=== PATIENT | female | born 2000 | race Caucasian/White ===

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

== ENCOUNTER → 2021-02-20 | Outpatient (CLI) | payer SELFPAY ==
[~2021-02-20] MED LIST changes: +ACETAMINOPHEN500 MG PO; +ALBU90OI6 INH; +Amoxicillin500 MG PO; +IBUP400 PO; +METPRE4DP PO; +Zofran Odt4 MG SL
[2021-02-21 08:22] LABS: G. vaginalis (DNA Probe) Positive (NEGATIVE); T. vaginalis (DNA Probe) Negative (NEGATIVE)
[2021-02-21 08:23] LABS: Candida species (DNA Probe) Negative (NEGATIVE)
[2021-02-22 05:09] LABS: CHLAMYDIA TRACHOMATIS, NAA Positive (Negative)
== END | disposition home or self-care (01) ==
LOC: LAB SHORT 17:55 → LAB EV 17:55
PROVIDERS: Physician Assistant
DX: Z20.9 Contact with and (suspected) exposure to unspecified communicable disease (principal)
CPT/HCPCS: 87480; 87491; 87510; 87591; 87660

== ENCOUNTER 2021-12-08 16:14 | Emergency (ER) | payer OTHER ==
[~2021-12-08] VITALS: Ht 165.1 cm; Wt 72.6 kg
[2021-12-08] MEDS ORDERED: PERIDEX15 ML MM (20:19)
[2021-12-08] MEDS ORDERED: AMOCLA875 PO (20:19)
== END 2021-12-08 20:32 | disposition home or self-care (01) ==
LOC: ER 16:14
DX: S01.551A Open bite of lip, initial encounter (principal); Z91.018 Allergy to other foods; Z88.8 Allergy status to other drugs, medicaments and biological substances; F17.210 Nicotine dependence, cigarettes, uncomplicated; W54.0XXA Bitten by dog, initial encounter
CPT/HCPCS: A9270

== ENCOUNTER 2022-05-25 21:28 | Emergency (ER) | payer OTHER ==
[~2022-05-25] VITALS: Ht 167.6 cm; Wt 68.0 kg
[~2022-05-25 21:28] MED LIST changes: +PERIDEX15 ML MM
[2022-05-25] MEDS ORDERED: IBUP800 PO (22:48)
== END 2022-05-25 22:59 | disposition home or self-care (01) ==
LOC: ER 21:28
DX: S00.83XA Contusion of other part of head, initial encounter (principal); F17.210 Nicotine dependence, cigarettes, uncomplicated; Z88.8 Allergy status to other drugs, medicaments and biological substances; Z91.018 Allergy to other foods; W51.XXXA Accidental striking against or bumped into by another person, initial encounter
CPT/HCPCS: J1885

== ENCOUNTER → 2023-02-16 | Outpatient (CLI) | payer OTHER ==
[~2023-02-16] MED LIST changes: +IBUP800 PO
[2023-02-19 14:11] LABS: CHLAMYDIA BY NAA Negative (Negative); GONOCOCCUS BY NAA Negative (Negative); TRICH VAG BY NAA Negative (Negative)
== END | disposition home or self-care (01) ==
LOC: LAB 18:42 → LAB SHORT 18:42
PROVIDERS: Family Medicine
DX: N89.8 Other specified noninflammatory disorders of vagina (principal); R35.0 Frequency of micturition
CPT/HCPCS: 87086; 87491; 87591; 87661

== ENCOUNTER → 2024-05-21 | Outpatient (CLI) | payer OTHER ==
[2024-05-21 17:06] LABS: BASOPHILS ABSOLUTE AUTO 0.07 K/mm3 (0.00-0.23); BASOPHILS PERCENT AUTO 1 % (0-2); EOSINOPHILS ABSOLUTE AUTO 0.14 K/mm3 (0.00-0.68); EOSINOPHILS PERCENT AUTO 2 % (0-6); Hematocrit 41.8 % (33.0-51.0); Hemoglobin 14.8 g/dL (11.5-16.0); IMMATURE GRAN ABSOLUTE AUTO 0.03 K/mm3 (0.00-0.10); IMMATURE GRAN PERCENT AUTO 0 % (0-1); LYMPHOCYTES ABSOLUTE AUTO 1.33 K/mm3 (0.84-5.20); LYMPHOCYTES PERCENT AUTO 19 % (21-46); MONOCYTES ABSOLUTE AUTO 0.67 K/mm3 (0.16-1.47); MONOCYTES PERCENT AUTO 9 % (4-13); Mean Corpuscular HGB 31.7 pg (26.0-34.0); Mean Corpuscular HGB Conc 35.4 g/dL (31.5-36.5); Mean Corpuscular Volume 90 fL (80-100); Mean Platelet Volume 9.2 fL (9.1-12.4); NEUTROPHILS ABSOLUTE AUTO 4.89 K/mm3 (1.96-9.15); NEUTROPHILS PERCENT AUTO 69 % (41-73); Platelet Count 282 K/mm3 (150-400); RDW Coefficient Variation 11.8 % (11.7-14.2); RDW Standard Deviation 37.5 fL (35.1-46.3); Red Blood Cell Count 4.67 M/mm3 (3.80-5.20); White Blood Cell Count 7.13 K/mm3 (4.00-11.30)
[2024-05-21 17:19] LABS: Albumin, Blood 4.2 g/dL (3.4-5.0); Albumin/Globulin Ratio 1.1 (0.8-1.8); Bilirubin, Total 0.6 mg/dL (0.1-1.0); Bun/Creatinine Ratio 16.3 (12.0-20.0); Calcium, Blood 9.1 mg/dL (8.5-10.1); Creatinine, Blood 0.92 mg/dL (0.40-1.00); Potassium, Blood 3.1 mmol/L (3.5-5.5); Total Protein, Blood 8.2 g/dL (6.4-8.2)
== END ==
LOC: LAB 17:03 → LAB SHORT 17:03
PROVIDERS: Physician Assistant
DX: R10.9 Unspecified abdominal pain (principal)
CPT/HCPCS: 80053; 83690; 85025

== ENCOUNTER → 2024-06-06 | Outpatient (CLI) | payer OTHER ==
[2024-06-07 09:02] LABS: Bacterial Vaginosis PCR Negative (NEGATIVE); Candida Group, PCR NOT DETECTED (NOT DETECT); Candida glabrata-krusei, PCR NOT DETECTED (NOT DETECT)
[2024-06-10 06:47] LABS: APTIMA MEDIA TYPE Urine; C. TRACHOMATIS BY TMA Negative (Negative); N. GONORRHOEAE BY TMA Negative (Negative); SPECIMEN SOURCE Urine; T. VAGINALIS BY TMA Negative (Negative)
== END ==
LOC: LAB SHORT 16:21 → LAB 16:21
PROVIDERS: Nurse Practitioner
DX: N89.8 Other specified noninflammatory disorders of vagina (principal)
CPT/HCPCS: 87481; 87491; 87591; 87661; 87801

== ENCOUNTER → 2024-09-09 | Outpatient (CLI) | payer OTHER ==
[2024-09-09 18:52] LABS: Bacterial Vaginosis PCR Negative (NEGATIVE); Candida glabrata-krusei, PCR NOT DETECTED (NOT DETECT)
[2024-09-09 18:54] LABS: Candida Group, PCR DETECTED (NOT DETECT)
== END ==
LOC: LAB SHORT 17:14 → LAB 17:14
PROVIDERS: Physician Assistant Surgical
DX: N76.0 Acute vaginitis (principal)
CPT/HCPCS: 87481; 87661; 87801

== ENCOUNTER 2025-10-10 00:14 | Emergency (ER) | payer OTHER ==
[~2025-10-10] VITALS: Ht 167.6 cm; Wt 88.5 kg
[2025-10-10 00:28] VITALS: BP 141/79
[2025-10-10] MEDS ORDERED: PERIDEX15 ML MM (00:31)
[2025-10-10] MEDS ORDERED: IBU600 MG PO (00:31)
== END 2025-10-10 00:45 | disposition home or self-care (01) ==
LOC: ER 00:14
DX: K08.89 Other specified disorders of teeth and supporting structures (principal); Z79.2 Long term (current) use of antibiotics; Z91.018 Allergy to other foods
CPT/HCPCS: 99282; A9270

== ENCOUNTER 2025-10-11 22:00 | Emergency (ER) | payer OTHER ==
[~2025-10-11] VITALS: Ht 167.6 cm; Wt 86.2 kg
[~2025-10-11 22:00] MED LIST changes: +IBU600 MG PO
[2025-10-12] MEDS ORDERED: Clindamycin 600mg in D5W 50 ML IV ONE (00:30)
[2025-10-12] MEDS ORDERED: Ketorolac Tromethamine 15mg Vial IV ONE (00:30)
[2025-10-12] MEDS ORDERED: TRAM50 PO (00:35)
[2025-10-12] MEDS ORDERED: Ondansetron HCl 2 MG / ML 2ML Vial IV ONE (00:35)
[2025-10-12] MEDS ORDERED: Cleocin HCl150 MG PO (00:35)
[2025-10-12] MEDS ORDERED: ONDA4ODT MM (00:35)
[2025-10-12 02:04] VITALS: BP 131/65
== END 2025-10-12 02:06 | disposition home or self-care (01) ==
LOC: ER 22:00
DX: K04.7 Periapical abscess without sinus (principal); Z79.899 Other long term (current) drug therapy; Z91.018 Allergy to other foods; Z88.8 Allergy status to other drugs, medicaments and biological substances
CPT/HCPCS: 96365; 96375; 99282-25; A9270; J1885; J2405

== ENCOUNTER → 2025-11-11 | Outpatient (CLI) | payer OTHER ==
[~2025-11-11] MED LIST changes: +Cleocin HCl150 MG PO; +ONDA4ODT MM; +TRAM50 PO
[2025-11-11 10:37] LABS: BASOPHILS ABSOLUTE AUTO 0.04 K/mm3 (0.00-0.23); BASOPHILS PERCENT AUTO 0 % (0-2); EOSINOPHILS ABSOLUTE AUTO 0.10 K/mm3 (0.00-0.68); EOSINOPHILS PERCENT AUTO 1 % (0-6); Hematocrit 33.6 % (33.0-51.0); Hemoglobin 11.6 g/dL (11.5-16.0); IMMATURE GRAN ABSOLUTE AUTO 0.04 K/mm3 (0.00-0.10); IMMATURE GRAN PERCENT AUTO 0 % (0-1); LYMPHOCYTES ABSOLUTE AUTO 1.89 K/mm3 (0.84-5.20); LYMPHOCYTES PERCENT AUTO 21 % (21-46); MONOCYTES ABSOLUTE AUTO 0.54 K/mm3 (0.16-1.47); MONOCYTES PERCENT AUTO 6 % (4-13); Mean Corpuscular HGB Conc 34.5 g/dL (31.5-36.5); Mean Corpuscular Volume 92 fL (80-100); NEUTROPHILS ABSOLUTE AUTO 6.35 K/mm3 (1.96-9.15); NEUTROPHILS PERCENT AUTO 71 % (41-73); NRBC ABSOLUTE 0.00 K/mm3 (0.00-0.02); NRBC Auto 0.0 /100 WBC (0.0-0.2); Platelet Count 236 K/mm3 (150-400); RDW Coefficient Variation 11.7 % (11.7-14.2); RDW Standard Deviation 39.1 fL (35.1-46.3)
[2025-11-11 11:10] LABS: Alanine Aminotransfer (ALT/SGP 39.0 U/L (12-78); Albumin, Blood 3.1 g/dL (3.4-5.0); Albumin/Globulin Ratio 0.8 (0.8-1.8); Anion Gap 15.0 mmol/L (3-11); Aspartate Aminotrans (AST/SGOT 21.0 U/L (12-37); Bilirubin, Total 0.3 mg/dL (0.1-1.0); Blood Urea Nitrogen 11.0 mg/dL (8-24); CO2, Blood 22.0 mmol/L (21-32); Calcium, Blood 8.5 mg/dL (8.5-10.1); Chloride, Blood 106.0 mmol/L (98-108); Creatinine, Blood 0.64 mg/dL (0.40-1.00); Globulin, Blood 3.9 g/dL (2.2-4.0); Glucose, Blood 104.0 mg/dL (70-99); Potassium, Blood 3.4 mmol/L (3.5-5.5); Sodium, Blood 140.0 mmol/L (136-145); Total Protein, Blood 7.0 g/dL (6.4-8.2)
== END ==
LOC: LAB SHORT 10:32 → LAB 10:32
PROVIDERS: Chiropractor
DX: O99.891 Other specified diseases and conditions complicating pregnancy (principal); R10.9 Unspecified abdominal pain
CPT/HCPCS: 80053; 83690; 84702; 85025; 87086